=== PATIENT | male | born 1980 | race Caucasian/White ===

== ENCOUNTER 2017-02-28 13:15 | Inpatient (IN) | payer SELFPAY ==
[~2017-02-28] VITALS: Ht 172.7 cm; Wt 82.0 kg
[2017-02-28] MEDS: SODIUM CHLORIDE 0.45% 1,000 ML IV SCH (03:50)
[2017-02-28] MEDS ORDERED: SODIUM CHLORIDE 0.9% 1,000 ML IV ONE (16:15)
[2017-02-28] MEDS ORDERED: KETOROLAC 30MG/ML VIAL IV ONE (16:45)
[2017-02-28 16:53] LABS: BASOPHILS % 0.7 % (0.0-2.0); EOSINOPHILS % 0.1 % (0.0-5.0); HEMATOCRIT. 43.1 % (42.0-52.0); LYMPHOCYTES % 41.3 % (20.0-50.0); MEAN CORPUSCULAR HEMOGLOBIN 33.3 pg (28.0-32.0); MEAN CORPUSCULAR VOLUME 95.5 fL (80.0-94.0); MEAN PLATELET VOLUME 8.7 fl (7.4-10.4); MONOCYTES % 4.8 % (2.0-8.0); NEUTROPHILS % 53.1 % (40.0-76.0); PLATELET 122 x1000/uL (130-400); RED BLOOD CELL COUNT 4.51 mill/uL (4.7-6.1); RED CELL DISTRIBUTION WIDTH 14.4 % (11.6-14.6)
[2017-02-28 17:04] LABS: CHLORIDE 99 mEq/L (98-107)
[2017-02-28 17:11] LABS: INR 1.5; PROTHROMBIN TIME 15.2 sec (9.4-11.6)
[2017-02-28 17:15] LABS: CARBON DIOXIDE 24 mEq/L (21-32)
[2017-02-28] MEDS ORDERED: LORAZEPAM 1MG TABLET PO ONE (17:15)
[2017-02-28 17:40] LABS: ETHANOL BLOOD 312 mg/dL
[2017-02-28 19:33] LABS: CLARITY URINE CLEAR (CLEAR); COLOR URINE YELLOW (YELLOW); KETONES URINE NEGATIVE (NEGATIVE); LEUKOCYTE ESTERASE URINE NEGATIVE (NEGATIVE); NITRITE URINE NEGATIVE (NEGATIVE); OCCULT BLOOD URINE NEGATIVE (NEGATIVE); PH URINE 5.5 (4.5-8.0); PROTEIN URINE NEGATIVE (NEGATIVE); SPECIFIC GRAVITY URINE 1.008 (1.005-1.030); UROBILINOGEN URINE 0.2 E.U./dL (0.2-1.0)
[2017-02-28 19:59] LABS: *AMPHETAMINES SCREEN URINE NEGATIVE (NEGATIVE); *BARBITURATES SCREEN URINE NEGATIVE (NEGATIVE); *BENZODIAZEPINES SCREEN URINE NEGATIVE (NEGATIVE); *COCAINE SCREEN URINE NEGATIVE (NEGATIVE); CANNABINOID URINE SCREEN NEGATIVE (NEGATIVE); METHADONE URINE SCREEN NEGATIVE (NEGATIVE); OPIATES URINE SCREEN NEGATIVE (NEGATIVE); PHENCYCLIDINE URINE SCREEN NEGATIVE (NEGATIVE)
[2017-02-28] MEDS ORDERED: GUAIFENESIN 200MG/10ML SUGAR FREE UDC PO PRN (22:30)
[2017-02-28] MEDS ORDERED: DOCUSATE SODIUM 100MG CAPSULE PO PRN (22:30)
[2017-02-28] MEDS ORDERED: MAGNESIUM/ALUMINUM HYDROXIDE/SIMETHICONE 30ML UDC PO PRN (22:30)
[2017-02-28] MEDS ORDERED: ONDANSETRON HCL 4MG/2ML VIAL IV PRN (22:30)
[2017-02-28] MEDS ORDERED: NA PHOS,M-B/NA PHOS,DI-BA ENEMA 118ML PR PRN (22:30)
[2017-02-28] MEDS ORDERED: DIPHENHYDRAMINE 50MG/ML VIAL IV PRN (22:30)
[2017-02-28] MEDS ORDERED: IPRATROPIUM/ALBUTEROL 0.5-3(2.5)MG/3ML NEB INH PRN (22:30)
[2017-02-28] MEDS ORDERED: CLONIDINE 0.1MG TABLET PO PRN (22:30)
[2017-02-28] MEDS ORDERED: ACETAMINOPHEN 325MG TABLET PO PRN (22:30)
[2017-02-28] MEDS ORDERED: LORAZEPAM 2MG/ML CPJ IV PRN (22:30)
[2017-02-28] MEDS: HYDROCODONE/ACETAMINOPHEN 5/325MG TABLET PO PRN (23:11)
[2017-02-28 23:42] LABS: CARBON DIOXIDE 25 mEq/L (21-32); CHLORIDE 100 mEq/L (98-107)
[2017-03-01] MEDS ORDERED: METRONIDAZOLE 500 MG PREMIX 100 ML IV NR (03:00)
[2017-03-01] MEDS ORDERED: LEVOFLOXACIN 500MG PREMIX 100 ML IV NR (03:00)
[2017-03-01 04:53] LABS: BASOPHILS % 1.2 % (0.0-2.0); EOSINOPHILS % 1.2 % (0.0-5.0); HEMATOCRIT. 38.3 % (42.0-52.0); HEMOGLOBIN. 13.3 g/dL (14.0-18.0); MEAN CORPUSCULAR HEMOGLOBIN 33.6 pg (28.0-32.0); MEAN CORPUSCULAR VOLUME 96.4 fL (80.0-94.0); MEAN PLATELET VOLUME 8.7 fl (7.4-10.4); MONOCYTES % 5.9 % (2.0-8.0); NEUTROPHILS % 50.7 % (40.0-76.0); PLATELET 89 x1000/uL (130-400); RED BLOOD CELL COUNT 3.97 mill/uL (4.7-6.1); RED CELL DISTRIBUTION WIDTH 13.9 % (11.6-14.6)
[2017-03-01 05:30] LABS: CARBON DIOXIDE 27 mEq/L (21-32); CHLORIDE 99 mEq/L (98-107); HDL CHOLESTEROL 14 mg/dL (40-59); LDL CHOLESTEROL 105 mg/dL (5-100)
[2017-03-01 08:00] VITALS: BP_SYST 112; BP_SYST 117; BP_DIAS 71; BP_DIAS 78
[2017-03-01] MEDS: MORPHINE SULFATE 4 MG/ML CPJ (NOT FOR IM USE) IV PRN ×2 (08:00→16:37)
[2017-03-01] MEDS: HYDROCODONE/ACETAMINOPHEN 5/325MG TABLET PO PRN ×2 (11:13→20:05)
[2017-03-01 12:00] VITALS: BP 117/78
[2017-03-01] MEDS ORDERED: LORAZEPAM 2MG/ML CPJ IV PRN (12:45)
[2017-03-01] MEDS: ENOXAPARIN 40MG/0.4ML SYR SUBCUT SCH (12:49)
[2017-03-01] MEDS: CHLORDIAZEPOXIDE 25MG CAPSULE PO SCH ×2 (13:00→20:04)
[2017-03-01] MEDS ORDERED: INFLUENZA VIRUS VACCINE 0.5ML SYR IM ONE (14:00)
[2017-03-01] MEDS: METRONIDAZOLE 500 MG PREMIX 100 ML IV SCH ×2 (14:00→21:39)
[2017-03-01 16:00] VITALS: BP 139/88
[2017-03-01] MEDS: SODIUM CHLORIDE 0.45% 1,000 ML IV SCH ×2 (16:38→16:39)
[2017-03-01 17:00] LABS: HEPATITIS B CORE AB IGM NEGATIVE
[2017-03-01 17:01] LABS: HEPATITIS A AB IGM NEGATIVE (NEGATIVE)
[2017-03-01] MEDS ORDERED: POTASSIUM CHLORIDE 20MEQ TABLET SR PO NR (17:45)
[2017-03-01 17:51] LABS: HEPATITIS B SURFACE ANTIGEN NEGATIVE
[2017-03-01] MEDS: THIAMINE HCL 100MG TABLET PO SCH (19:18)
[2017-03-01] MEDS: FOLIC ACID 1MG TABLET PO SCH (19:19)
[2017-03-01] MEDS: MULTIVITAMINS,THER W-MINERALS TABLET PO SCH (19:19)
[2017-03-01] MEDS: PANTOPRAZOLE SODIUM 40 MG/VIAL IV SCH (20:03)
[2017-03-01 21:05] VITALS: BP 126/82
[2017-03-02] VITALS: BP 121/72
[2017-03-02 04:36] VITALS: BP 129/86
[2017-03-02] MEDS ORDERED: LEVOFLOXACIN 500MG PREMIX 100 ML IV SCH (05:00)
[2017-03-02] MEDS: HYDROCODONE/ACETAMINOPHEN 5/325MG TABLET PO PRN (05:24)
[2017-03-02] MEDS: METRONIDAZOLE 500 MG PREMIX 100 ML IV SCH (05:31)
[2017-03-02 07:50] LABS: HEMATOCRIT 37.3 % (42.0-52.0); HEMOGLOBIN 13.1 g/dL (14.0-18.0); MEAN CORPUSCULAR HEMOGLOBIN 33.8 pg (28.0-32.0); MEAN CORPUSCULAR VOLUME 96.3 fL (80.0-94.0); PLATELET 69 x1000/uL (130-400); RED BLOOD CELL COUNT 3.87 mill/uL (4.7-6.1); RED CELL DISTRIBUTION WIDTH 14.2 % (11.6-14.6)
[2017-03-02 08:00] VITALS: BP 125/84
[2017-03-02] MEDS: ENOXAPARIN 40MG/0.4ML SYR SUBCUT SCH (09:00)
[2017-03-02] MEDS: FOLIC ACID 1MG TABLET PO SCH (09:26)
[2017-03-02] MEDS: THIAMINE HCL 100MG TABLET PO SCH (09:26)
[2017-03-02] MEDS: CHLORDIAZEPOXIDE 25MG CAPSULE PO SCH (09:26)
[2017-03-02] MEDS: PANTOPRAZOLE SODIUM 40 MG/VIAL IV SCH (09:26)
[2017-03-02] MEDS: MULTIVITAMINS,THER W-MINERALS TABLET PO SCH (09:26)
[2017-03-02 12:07] VITALS: BP 122/82
[2017-03-02 13:34] VITALS: BP 122/82
[2017-03-04 04:16] LABS: OVA & PARASITE EXAM Final report (.)
== END 2017-03-02 15:25 | disposition home or self-care (01) ==
LOC: ER 16:06 → 6EST 21:31 → ENRESERV 03-01 08:23 → 6EST 03-01 17:18
PROVIDERS: ADMIT Internal Medicine; ATTEND Internal Medicine
DX: K80.50 Calculus of bile duct without cholangitis or cholecystitis without obstruction (principal); F10.231 Alcohol dependence with withdrawal delirium; E11.9 Type 2 diabetes mellitus without complications; I10 Essential (primary) hypertension; E78.1 Pure hyperglyceridemia; E86.0 Dehydration; K21.9 Gastro-esophageal reflux disease without esophagitis; K29.20 Alcoholic gastritis without bleeding; R74.0 Nonspecific elevation of levels of transaminase and lactic acid dehydrogenase [LDH]; R25.1 Tremor, unspecified; R07.9 Chest pain, unspecified
CPT/HCPCS: 36415; 71045; 74181; 76705; 80048; 80053; 80061; 80076; 80305; 81003; 82270; 82962; 83036; 83690; 84478; 84484; 85025; 85027; 85610; 86705; 86709; 86803; 87015; 87045; 87177; 87209; 87340; 87427; 87449; 87493; 89055; 93005; 96361; 96365; 96367; 96375; 99285; C9113; G0482; J1650; J1885; J1956; J2060; J2270; J2405; J3490; J7030